=== PATIENT | female | born 1970 ===

== ENCOUNTER 2020-12-24 05:23 | Emergency (ER) | payer SELFPAY ==
[2020-12-24 09:04] VITALS: BP 134/71
[2020-12-24 09:45] LABS: Bacteria,Urine 2+ /HPF (Negative); Bilirubin,Urine NEG (Negative); Blood,Urine NEG (Negative); Color,Urine Yellow (Yellow); Protein,Urine <15 mg/dL mg/dL (Negative); Urobilinogen,Urine < 2.0 mg/dL (<2.0)
[2020-12-24 09:49] LABS: Alanine Aminotransferase 13 units/L (7-56); Albumin 4.4 g/dL (3.9-5); Blood Urea Nitrogen 6 mg/dL (7-17); Calcium 9.6 mg/dL (8.4-10.2); Hemolysis Index 27
[2020-12-24 09:54] LABS: BUN/Creatinine Ratio 12; Basophils % (Auto) 0.3 % (0.0-1.8); Eosinophils % (Auto) 0.5 % (0.0-4.3); Hematocrit 37.5 % (30.3-42.9); Hemoglobin 12.7 gm/dl (10.1-14.3); Lymphocytes # (Auto) 2.1 K/mm3 (1.2-5.4); Lymphocytes % (Auto) 29.2 % (13.4-35.0); Mean Corpuscular HGB Conc 34 % (30-34); Mean Corpuscular Volume 99 fl (79-97); Monocytes # (Auto) 0.4 K/mm3 (0.0-0.8); Platelet Count 351 K/mm3 (140-440); Red Blood Count 3.79 M/mm3 (3.65-5.03); Red Cell Distribution Width 13.5 % (13.2-15.2)
--- NOTE | 2020-12-24 10:26 | XRay Report ---
CHEST 2 VIEWS INDICATION: Chest Pain. COMPARISON: None FINDINGS: Support devices: None. Heart: Within normal limits. Lungs/pleura: No acute air space or interstitial disease. No pneumothorax. Additional findings: None. IMPRESSION: Normal chest x-ray Signer Name: Fabio Washington Jr, MD Signed: 12/24/2020 10:21 AM Workstation Name: [id number]
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
[2020-12-24 10:53] LABS: INR 1.08 (0.87-1.13)
[2020-12-24 10:54] LABS: Partial Thromboplastin Time 28.1 Sec. (24.2-36.6)
== END 2020-12-24 11:32 | disposition home or self-care (01) ==
LOC: ED 05:23
DX: R20.0 Anesthesia of skin (principal); I10 Essential (primary) hypertension; Z98.890 Other specified postprocedural states
CPT/HCPCS: 36415; 71046; 80053; 81001; 84703; 85025; 85610; 85730; 87086; 93005